=== PATIENT | female | born 1990 | race Two or more races ===

== ENCOUNTER 2017-03-01 00:14 | Inpatient (IN) | payer OTHER ==
[~2017-03-01] VITALS: Ht 157.5 cm; Wt 93.2 kg
--- NOTE | ~2017-03-01 | ER ---
PATIENT'S NAME: SEAMUS J[facility]NS [facility] AGE: 26 Y [address] ROOM: [place] [address] LOCATION: [facility] ADMIT DATE: 03/01/2017 ER/Outpatient Report DISCHARGE DATE: FAMILY PHYSICIAN: PHYSICIAN, NO ATTENDING PHYSICIAN: Cole Garcia Time of Arrival: 0014 hours. Time of Evaluation: 0016 hours. CHIEF COMPLAINT: Low back pain and belly pain. HISTORY OF PRESENT ILLNESS: The patient is a 26-year-old female who presents to the emergency department today with chief complaint of low back pain and belly pain. She reports this started at 1700 hours. Reports history of similar episodes with . Pain increased at 2100 hours. She has had vomiting x1. She is having some urinary urgency. Last bowel movement was at 2100 hours. Reports a low-grade fever. No chills. It is a crampy-type pain, currently 10/10 in severity. PAST MEDICAL HISTORY: IUD. PAST SURGICAL HISTORY: Right fallopian tube and ovary removed. SOCIAL HISTORY: The patient denies any tobacco use. Reports occasional alcohol use. Denies any illicit drug use. ALLERGIES: NO KNOWN DRUG ALLERGIES. MEDICATIONS: None. PRIMARY CARE DOCTOR: [facility]. REVIEW OF SYSTEMS: All systems are reviewed by myself and negative with the exception of those discussed in HPI and past medical history. PHYSICAL EXAMINATION: VITAL SIGNS: Weight 92.4 kg, blood pressure 197/91, pulse 94, respiratory PATIENT'S NAME: SEAMUS JOHNS [facility] AGE: 26 Y [address] ROOM: [place] [address] LOCATION: [facility] ADMIT DATE: 03/01/2017 ER/Outpatient Report DISCHARGE DATE: FAMILY PHYSICIAN: PHYSICIAN, NO ATTENDING PHYSICIAN: Cole Garcia rate 26, temperature 99.3, oxygen saturation 99% on room air. GENERAL: The patient is a 26-year-old female, who appears stated age. Well- developed, well-nourished, in acute distress secondary to pain in her abdomen. HEENT: Normocephalic, atraumatic. Pupils are equal, round, and reactive to light. NECK: Supple. There is no nuchal rigidity. CARDIOVASCULAR: Regular rate and rhythm. No murmurs, rubs, or gallops. LUNGS: Clear to auscultation bilaterally. No wheezes, rales, or rhonchi. ABDOMEN: Soft with diffuse tenderness to palpation, worse in the suprapubic area and left lower quadrant region. She has no rebound, rigidity, or guarding. Positive bowel sounds. MUSCULOSKELETAL: The patient moves all 4 extremities. SKIN: Warm and dry. There is no rashes or lesions noted. LABORATORY DATA AND X-RAYS: CT scan of the abdomen and pelvis with and without IV contrast shows 5 x 5 mm stone in the distal left ureter with moderate left hydronephrosis. There is a nonobstructing left nephrolithiasis. A 5 x 5 mm stone, distal left ureter with moderate left hydronephrosis. CBC is unremarkable except for white blood cell count 11.6. CMP is unremarkable. LFTs are normal. Lipase is normal. Serum hCG is less than 1. Urinalysis shows 500 leukocyte esterase, negative nitrites, 30 protein, 5 ketones, 350 blood, 50-100 wbc's, 20-50 rbc's, 5-10 epithelials, many bacteria. IMPRESSION: 1. Infected 5 x 5 mm distal left ureter stone. 2. Moderate left hydronephrosis. 3. Initial visit. EMERGENCY DEPARTMENT COURSE: The patient was brought back to the examination room. Seen and evaluated by myself. IV is established. Laboratory analysis and imaging are obtained as described above. The patient was given 1 L of normal saline, 4 mg of Zofran IV, as well as 5 mg of morphine IV. She has been given 30 mg of Toradol IV and a repeat dose of 5 mg of morphine IV. This has resulted in significant improvement in the patient's symptoms. Results are obtained. The patient does appear to have a 5 x 5 mm stone in her distal left ureter with moderate left hydronephrosis with evidence of infection. I did contact Dr. Senior with Urology. We will admit the patient for further evaluation, treatment, and management. The patient is given 1 gram of Rocephin IV as well as 0.4 mg of p.o. Flomax. She will be remained n.p.o. I have contacted Dr. Rivas with the Hospitalist Service. He does agree to accept the patient for further evaluation and treatment management. PATIENT'S NAME: MARCELO WAY [place] AGE: 26 Y [address] ROOM: [place], [place] [address] LOCATION: [facility] ADMIT DATE: 03/01/2017 ER/Outpatient Report DISCHARGE DATE: FAMILY PHYSICIAN: ALAN WEINER ATTENDING PHYSICIAN: Cole Garcia DISPOSITION: The patient is admitted under the care of the Hospitalist Service in stable condition. DO HEAVEN ANTONIO/tatianal /[id number] d: 03/01/17319 t: 03/01/171930, OUTPATIENT REPORT
--- NOTE | ~2017-03-01 | OR ---
PATIENT'S NAME: MARCELO WAY [facility] AGE: 26 Y [address] ROOM: [place] [address] [place] [facility] [place]: 03/01/2017 OR/Procedure Report DISCHARGE DATE: FAMILY PHYSICIAN: PHYSICIAN, NO ATTENDING PHYSICIAN: COLT OVIEDO SURGEON: Obi Pritchett MD SECURITY OPERATIONS MANAGER: DATE OF PROCEDURE: 03/01/2017 PREOPERATIVE DIAGNOSES: 1. 5-mm left distal ureteral calculus. 2. Left nonobstructing and small upper tract calculus. 3. Question of infected stone. POSTOPERATIVE DIAGNOSES: 1. 5-mm left distal ureteral calculus. 2. Left nonobstructing and small upper tract calculus. 3. Question of infected stone. PROCEDURE: 1. Cystoscopy with left ureteroscopy and stone basket extraction. 2. Left ureteral stent placement. SURGEON: Myself. ANESTHESIA: Sedation. INDICATION: This is a 26-year-old lady experiencing her first episode of symptomatic stone disease. She developed pain symptoms yesterday evening. She then developed vomiting. She presented to the emergency room. CT scan revealed the above noted stones. Dr. Garcia was concerned that she may have infected stone, so we agreed on admission with IV antibiotics and stone intervention sooner rather than later. PROCEDURE IN DETAIL: Having obtained her informed consent, the patient was taken to the operating room. Prepped and draped sterilely and in lithotomy position. IV sedation was administered. A 21-Sami cystoscope was assembled and guided into the urethra. The course of the urethra was unremarkable. Bladder itself demonstrates no tumors, stones, or foreign bodies. Bladder examination was confirmed with a 70-degree lens. Preliminary radiographic survey was undertaken fluoroscopically. Two significant findings are an IUD and retained contrast in the left collecting system all the way down to the level of the stone as we had appreciated on the CT scan. The upper tract stones too small to appreciate. PATIENT'S NAME: MARCELO WAY [facility] AGE: 26 Y [address] ROOM: [place] [address] [place] [facility] [place]: 03/01/2017 OR/Procedure Report DISCHARGE DATE: FAMILY PHYSICIAN: PHYSICIAN, NO ATTENDING PHYSICIAN: COLT OVIEDO A guidewire was passed up the left side. We manipulated beyond the stone. We cannot see the stone. Because of the contrast, but we can certainly feel it with a wire. I then dilated the orifice and intramural tunnel. I then passed the semi- rigid ureteroscope. The stone was visualized. A Nitinol basket is prepared and passed. We have the laser on standby, we should be able to break, extracted, without tension and without breaking it up. Indeed, the stone was engaged in the basket and extracted without difficulty. It will be sent for analysis. With the requisite dilation and with the question of infection, I opted to stent her. The safety wire was back loaded into the cystoscope. Over that, I passed a 4.8 x 24 ureteral stent with a dangler string in place. We have a nice level of placement cystoscopically and fluoroscopically. The patient tolerated the procedure well. Blood loss was negligible. The stone was sent for analysis. The patient returned to recovery room, awake and stable condition. OBI PRITCHETT MD [facility]/modl /[id number] CC: Herbert Culver MD d: 03/01/17 1147 t: 03/02/17 0640, OPERATIVE SUMMARY
--- NOTE | ~2017-03-01 | HP ---
[facility] 26 Y [address] ROOM: [place] [address] [place] [facility] [place] DATE: 03/01/2017 History & Physical DISCHARGE DATE: FAMILY PHYSICIAN: ALAN WEINER ATTENDING PHYSICIAN: COLT OVIEDO DATE OF SERVICE: CHIEF COMPLAINT: Suprapubic pain. HISTORY OF PRESENT ILLNESS: This is a 26-year-old female who says that she usually does not drink much water on a daily basis and she says that around 6:00 p.m. last night, she had some mid lower back pain, but she chronically has lower back pain and this was not new for her. Therefore, she did not pay much attention. However, around 9:00 p.m. last night, the lower back pain got better, but she has a new onset of suprapubic pain under her umbilicus and she rated it about 6/10 in intensity, which progressively got worse until 10/10 intensity. At the same time, she also felt nauseous and has vomited around 4 times of nonbloody emesis and associated with chills and urinary frequency and urgency, but she denies any dysuria. She has never been diagnosed with kidney stone before, but she does have a history of status post appendectomy and also right salpingo-oophorectomy in the past and CT of abdomen and pelvis with contrast on admission here in the ER, the preliminary report showed a 5 x 5 mm stone distal left ureter and moderate left hydronephrosis. No bowel obstruction. Because of the pain, the patient came here for evaluation. REVIEW OF SYSTEMS: As mentioned in the history of present illness. All other systems were reviewed and were negative except those mentioned in the history of present illness. PAST MEDICAL HISTORY: None. ALLERGIES: NONE. SOCIAL HISTORY: She denies any alcohol or illegal drug or cigarette use. PAST SURGICAL HISTORY: 1. Status post appendectomy. 2. Status post right salpingo-oophorectomy. PATIENT'S NAME: [facility]US [facility] AGE: 26 Y [address] ROOM: [place] [address] [place] [facility] [place] DATE: 03/01/2017 History & Physical DISCHARGE DATE: FAMILY PHYSICIAN: PHYSICIAN, NO ATTENDING PHYSICIAN: COLT OVIEDO FAMILY HISTORY: Father is healthy. Mother has hypertension and murmur. PHYSICAL EXAMINATION: VITAL SIGNS: At the time of my dictation, temperature 98, blood pressure 130/70, heart rate 80, respirations 14, saturation 100% on room air. GENERAL APPEARANCE: Alert and oriented x3, in no acute distress. HEENT: Pupils are equally round and reactive to light. Extraocular muscles intact. Nasal turbinates are normal bilaterally. Moist oral mucosa. NECK: No JVD. CARDIOVASCULAR: Regular rate and rhythm. Normal S1, S2. No murmur, no rubs, no gallops. RESPIRATORY: Clear. ABDOMEN: Soft, nontender, nondistended, obese, bowel sounds present, no mass, and no hepatosplenomegaly. No abdominal rigidity. Costophrenic angle tenderness negative. EXTREMITIES: No edema in upper or lower extremities. NEUROLOGIC: Grossly nonfocal. SKIN: No ulcer, no rash, no cyanosis. MUSCULOSKELETAL: No joint pain. No muscle pain. Range of motion intact. LABORATORY DATA: White blood cells 11.6, hemoglobin 13.4, hematocrit 39.9, MCV 90.3, and platelets 203. Glucose 103, BUN 21, creatinine 1.1. Sodium 144, potassium 3.6, chloride 109. CO2 25, calcium 8.2, total protein 7.5, albumin 4.0, AST 16, ALT 31, alkaline phosphatase 104, total bilirubin 0.4. Anion gap 13.6, globulin 3.5, GFR 59. Urinalysis showed leukocytes 500. Negative nitrite. Many bacteria. White blood cells 50-100, red blood cells 20-50, blood 250. Lipase 111. Serum test negative. Urine antigen for chlamydia and gonorrhea negative. IMAGING STUDY: CT of abdomen and pelvis with IV contrast on admission, the preliminary report was read as 5 x 5 mm stone, distal left ureter. Moderate left hydronephrosis, nonobstructive left nephrolithiasis. Normal right kidney. No bowel obstruction. This is a preliminary report. Intrauterine device present. Please follow up with official report in the morning. ASSESSMENT AND PLAN: 1. Regarding her urinary tract infection in the setting of left nonobstructive nephrolithiasis in the distal left ureter with moderate left hydronephrosis based on the preliminary report of the CT abdomen and pelvis with contrast on admission: N.p.o. Urology consult for possible cystoscopy in the morning. Pain control with IV morphine p.r.n., IV PATIENT'S NAME: MARCELO WAY [facility] AGE: 26 Y [address] ROOM: [address] [address] [place] [facility] [place] DATE: 03/01/2017 History & Physical DISCHARGE DATE: FAMILY PHYSICIAN: PHYSICIAN, NO ATTENDING PHYSICIAN: COLT OVIEDO p.r.n., p.o. Tylenol p.r.n., and p.o. [place] p.r.n. I will cover her with IV Zosyn. I will get 2 sets of blood cultures. Also, follow up with her urine culture to titrate the antibiotics based on the sensitivity. IV fluids for hydration. Further plan depends on clinical course. Currently, the patient is hemodynamically stable. CT of the abdomen and pelvis based on the preliminary report did not show evidence of pyelonephritis. 2. Regarding her deep vein thrombosis prophylaxis: Compression devices in anticipation for cystoscopy in the morning. Time spent in care on the day of admission, 35 minutes including chart review, interviewing the patient, examining the patient, addressing all the questions and concerns the patient had, and I answered all her questions to her satisfaction. I also went over the plan of care in detail with the patient and also with the patient's at the bedside. The patient and the patient's are in agreement with the plan. Further plan depends on clinical course. COLT OVIEDO MD CC/tatianal /[id number] D: 429 T: 402 HISTORY & PHYSICAL
--- NOTE | ~2017-03-01 | DS ---
PATIENT'S NAME: MARCELO WAY [facility] AGE: 26 Y [address] ROOM: [place] [address] [place] [facility] [place]: 03/01/2017 Discharge Summary DISCHARGE DATE: 03/01/2017 FAMILY PHYSICIAN: PHYSICIAN, NO ATTENDING PHYSICIAN: Taigo Rivas PRIMARY DIAGNOSES: 1. Systemic inflammatory response syndrome. 2. Ureterolithiasis. 3. Hydronephrosis on the left. 4. Urinary tract infection. OPERATIONS/PROCEDURES: Cystoscopy with ureteral stent placement was performed by Dr. Senior on 03/01/2017. HISTORY OF PRESENTING ILLNESS/REASON FOR ADMISSION: Please refer to the H and P dictated 03/01/2017. HOSPITAL COURSE: The patient was admitted to hospital as noted above with a presumptive diagnosis of infected left ureteral stone. She was presumed to have sepsis, blood cultures were negative, and it was felt that she did not meet sepsis criteria. Broad-spectrum antibiotic therapy with IV Zosyn was continued. She did have evaluation by Urology and underwent cystoscopy as described above with ureteral stent placement. This was uncomplicated and postoperatively she was transitioned to the floor. She was feeling well, tolerated regular diet; and at that point, it was felt to be stable enough for discharge home on oral antibiotic therapy and plans for close clinical followup with Urology. DISCHARGE INSTRUCTIONS: 1. Diet: Regular as tolerated. 2. Activity: As tolerated. MEDICATIONS: 1. Levofloxacin 750 mg p.o. daily x3 more days. 2. Acetaminophen 650 mg p.o. q.6 h. p.r.n. pain or fever. 3. Ibuprofen 600 mg p.o. t.i.d. p.r.n. pain. FOLLOW UP: She will follow up with Dr. Obi Senior in 1 week. She will remove the ureteral stent on Wednesday morning. She will follow up with the primary care provider in 7 to 10 days. CONDITION ON DISCHARGE: Good. PATIENT'S NAME: MARCELO WAY [facility] AGE: 26 Y [address] ROOM: [address] [address] [place] [facility] [place]: 03/01/2017 Discharge Summary DISCHARGE DATE: 03/01/2017 FAMILY PHYSICIAN: PHYSICIAN, NO ATTENDING PHYSICIAN: Tiago Rivas Total time spent on discharge process was 35 minutes. SOFIA MD CARLOS JADE/scott /[id number] d: 03/02/17 0334 t: 03/03/17 1650, DISCHARGE SUMMARY
[2017-03-01 00:42] LABS: BASOPHIL # 0.1 K/uL (0.0-0.2); BASOPHIL % 0.4 %; EOSINOPHIL # 0.1 K/uL (0.0-0.5); EOSINOPHIL % 0.5 %; HEMATOCRIT 39.9 % (33.0-46.0); HEMOGLOBIN 13.4 g/dL (11.0-15.0); IMMATURE GRANULOCYTE % 0.3 %; LYMPHOCYTE # 1.7 K/uL (0.8-4.0); LYMPHOCYTE % 14.2 %; MCH 30.3 pg (27.0-34.0); MCHC 33.6 gm/dL (32.0-36.5); MCV 90.3 fl (83.0-98.0); MONOCYTE # 0.4 K/uL (0.0-1.0); MONOCYTE % 3.3 %; NEUTROPHIL # (ANC) 9.5 K/uL (1.8-7.8); NEUTROPHIL % 81.3 %; NRBC % 0 /100WBC (0-0.00); PLATELET COUNT 203 K/uL (150-450); RBC 4.42 M/uL (3.50-5.00); RDW-CV 12.1 % (11.9-14.6); WBC 11.6 K/uL (4.0-11.0)
[2017-03-01 01:00] LABS: ALK PHOS 104 IU/L (33-138); ALT 31 IU/L (12-78); ANION GAP 13.6 (10.0-19.0); AST 16 IU/L (10-40); BLOOD UREA NITROGEN 21 mg/dL (6-24); CALCIUM 8.2 mg/dL (8.5-10.5); CHLORIDE 109 mMol/L (96-110); CO2 25 mMol/L (22-32); CREATININE 1.1 mg/dL (0.5-1.1); ESTIMATED GFR (MDRD EQUATION) 59; POTASSIUM 3.6 mMol/L (3.7-5.1); SODIUM 144 mMol/L (135-145); TOTAL BILIRUBIN 0.4 mg/dL (0.0-1.5); TOTAL PROTEIN 7.5 g/dL (6.0-8.4)
[2017-03-01 01:11] LABS: BLOOD URINE 250 /UL (NEGATIVE); COLOR URINE YELLOW (YELLOW); GLUCOSE URINE NEGATIVE (NEGATIVE); KETONE URINE 5 mg/dL (NEGATIVE); LEUKOCYTES URINE 500 /UL (NEGATIVE); NITRITE URINE NEGATIVE (NEGATIVE); PROTEIN URINE 30 mg/dL (NEGATIVE); TURBIDITY URINE 3+ (CLEAR); UROBILINOGEN URINE 4 mg/dL (NORMAL)
[2017-03-01 01:18] LABS: BACTERIA URINE MANY (NEGATIVE); RBC URINE 20-50 #/HPF (NEGATIVE); WBC URINE 50-100 #/HPF (NEGATIVE)
[2017-03-01] MEDS ORDERED: TYLENOL325 MG PO (04:24)
[2017-03-01] MEDS ORDERED: IBUPROFEN200 M1 PO (04:24)
--- NOTE | 2017-03-01 05:23 | NUR ---
Pt admitted from ER around 0420 for left side infected kidney stone. Pt started feeling poorly over the past day. Back pain radiating to abdomen got so intense that pt couldn't walk much or lay still. Ct scan showed 5x5mm kidney stone. Did have nausea and vomiting at home. Allergy to latex. Rocephin given in ER. Per ER report, test was negative. Urology to see this morning.
--- NOTE | 2017-03-01 07:17 | NUR ---
Significant Event: Pt alert and oriented. Up with stand by assist. IV fluids infusing without difficulty. Blood cultures drawn. Started on IV antibiotics. Pt has latex allergy. at bedside. Urology to see. VSS. Follow up:
[2017-03-01 10:32] LABS: HEMATOCRIT 41.6 % (33.0-46.0); HEMOGLOBIN 13.8 g/dL (11.0-15.0); MCH 30.3 pg (27.0-34.0); MCHC 33.2 gm/dL (32.0-36.5); MCV 91.4 fl (83.0-98.0); MPV 11.1 fl (9.4-12.4); RBC 4.55 M/uL (3.50-5.00); RDW-CV 12.3 % (11.9-14.6); WBC 15.6 K/uL (4.0-11.0)
[2017-03-01 10:52] LABS: ANION GAP 11.4 (10.0-19.0); BLOOD UREA NITROGEN 12 mg/dL (6-24); CALCIUM 7.8 mg/dL (8.5-10.5); CHLORIDE 112 mMol/L (96-110); CO2 23 mMol/L (22-32); CREATININE 0.9 mg/dL (0.5-1.1); ESTIMATED GFR (MDRD EQUATION) > 60; MAGNESIUM 2.5 mg/dL (1.8-2.6); POTASSIUM 4.4 mMol/L (3.7-5.1); SODIUM 142 mMol/L (135-145)
[2017-03-01 10:53] LABS: PHOSPHORUS 1.8 mg/dL (2.5-4.9)
--- NOTE | 2017-03-01 14:55 | NUR ---
Significant event: Up in room and franks. Voiding good light pink to light yellow urine. Tylenol for headache. eating and drinking good.
[2017-03-01] MEDS ORDERED: LEVAQUIN750 MG PO (16:29)
--- NOTE | 2017-03-01 16:31 | NUR ---
D: ORDERS RECEIVED FOR THE PATIENT TO BE DISCHARGED TO HOME TODAY I: DISMISSAL INSTRUCTIONS WERE PREPARED AND REVIEWED WITH THE PATIENT AND FAMILY VIRTUALLY. THE FOLLOWING INFORMATION WAS DISCUSSED INCLUDING MELISSA TEACHING SHEETS PROVIDED: CYSTOSCOPY, STENTS-URETERAL, LEVAQUIN AND PREVENTING DVT. REVIEWED FOLLOW UP APPOINTMENT WITH DR. BARBER AND WHEN TO REMOVE DANGLER ON WEDNESDAY OR CALL DR. PRITCHETT'S OFFICE TO REMOVE IT. R: THE PATIENT AND HER FAMILY BOTH VERBALIZED UNDERSTANDING OF THE DISMISSAL EDUCATION AT THE TIME OF TEACHING WITH NO FURTHER QUESTIONS. P: THE ABOVE INFORMATION WAS SHARED WITH THE PRIMARY NURSE AND THE CHARGE NURSE THAT THE PATIENT DISMISSAL EDUCATION WAS COMPLETED. THE PATIENT IS READY FOR DISCHARGE TO THE FRONT DOOR VIA WHEEL CHAIR BY NURSING STAFF WHEN ANTIBIOTIC IS COMPLETE.
== END 2017-03-01 17:45 | disposition disaster alternative care site (69) | DRG 854 ==
LOC: GMED 00:14 → GMSU 03:42
PROVIDERS: Emergency Medicine; ADMIT Internal Medicine
DX: R65.10 Systemic inflammatory response syndrome (SIRS) of non-infectious origin without acute organ dysfunction (principal); N13.6 Pyonephrosis; B96.89 Other specified bacterial agents as the cause of diseases classified elsewhere
CPT/HCPCS: C1725; C1769; J0696; J1100; J1200; J1885; J2270; J2405; J2543; J3010; J3480; J7030; Q9967